=== PATIENT | male | born 1985 | race African-American/Black ===

== ENCOUNTER → 2019-09-23 13:06 | Outpatient (CLI) | payer MEDICAID ==
[2019-09-23 14:29] LABS: BASOPHILS 0.7 % (0-2); EOSINOPHILS 7.3 % (0-7); HEMATOCRIT 42.2 % (42.0-54.0); HEMOGLOBIN 14.3 g/dL (13.5-17.5); IMMATURE GRANULOCYTES 0.4 % (0-5); LYMPHOCYTES 33.1 % (15-50); MCH 28.8 pg (26.0-34.0); MCHC 33.9 g/dL (31.0-37.0); MCV 85.1 fL (80.0-100.0); MEAN PLATELET VOLUME 10.7 fL (7.4-10.4); MONOCYTES 7.3 % (2-11); NEUTROPHILS 51.2 % (40-80); PLATELET COUNT 173 10x3/uL (130-400); RBC 4.96 10x6/uL (4.20-6.10); WBC 5.6 10x3/uL (4.8-10.8)
== END | disposition home or self-care (01) ==
LOC: D.RT 13:00
PROVIDERS: ATTEND Internal Medicine Pulmonary Disease
DX: R06.09 Other forms of dyspnea (principal); J45.909 Unspecified asthma, uncomplicated

== ENCOUNTER → 2020-01-10 13:08 | Outpatient (CLI) | payer MEDICAID ==
[2019-11-08 22:15] VITALS: BMI 23.1
[~2020-01-10 13:08] MED LIST: PREDNISONE20 MG PO; TESSALON PERLE100 MG PO
== END | disposition home or self-care (01) ==
LOC: D.MRI 13:08
PROVIDERS: ATTEND Clinical Nurse Specialist Family Health
DX: M25.531 Pain in right wrist (principal)

== ENCOUNTER 2020-01-14 23:14 | Inpatient (IN) | payer MEDICAID ==
[~2020-01-14] VITALS: Ht 188 cm; Wt 90.1 kg
[2020-01-14 23:46] LABS: BASOPHILS 0.8 % (0-2); EOSINOPHILS 9.1 % (0-7); HEMATOCRIT 43.1 % (42.0-54.0); HEMOGLOBIN 14.5 g/dL (13.5-17.5); IMMATURE GRANULOCYTES 0.2 % (0-5); LYMPHOCYTES 34.2 % (15-50); MCHC 33.6 g/dL (31.0-37.0); MCV 86.2 fL (80.0-100.0); MEAN PLATELET VOLUME 10.5 fL (7.4-10.4); MONOCYTES 5.8 % (2-11); NEUTROPHILS 49.9 % (40-80); PLATELET COUNT 192 10x3/uL (130-400); RDW 12.7 % (11.5-14.5); WBC 9.9 10x3/uL (4.8-10.8)
[2020-01-14 23:48] VITALS: BP 181/121
[2020-01-14 23:55] LABS: ANION GAP 10.5 mmol/L (8-16); CALCIUM 8.6 mg/dL (8.5-10.1); CARBON DIOXIDE 28.2 mmol/L (21.0-32.0); CREATININE - SERUM 1.4 mg/dL (0.6-1.3); POTASSIUM - SERUM 3.7 mmol/L (3.5-5.1)
[2020-01-15] VITALS (26 sets, daily range): BP systolic 99–171; BP diastolic 61–101; Ht 188 cm; Wt 90.1 kg
[2020-01-15 00:03] LABS: ALBUMIN 4.1 g/dL (3.4-5.0); BILIRUBIN - TOTAL 0.35 mg/dL (0.2-1.3); MAGNESIUM - SERUM 2.9 mg/dL (1.8-2.4); PROTEIN - SERUM 7.3 g/dL (6.4-8.2)
--- NOTE | 2020-01-15 02:00 | NUR ---
PT ON UNIT CONNECTED TO ICU MONITORS - BIPAP @ 25% - HYPERTENSIVE AND TACHYCARDIC, ADMISSION ASSESSMENT, HISTORY, SRS, AND MED REC COMPLETED WILL CONTINUE TO CLOSELY MONITOR
[2020-01-15] MEDS ORDERED: SYMBICORT 16010.2 GM INH (02:26)
[2020-01-15] MEDS ORDERED: PROAIR HFA8.5 G1 INH (02:27)
[2020-01-15] MEDS ORDERED: PROVENTIL/2.5 MG/3 M UPD (02:30)
--- NOTE | 2020-01-15 05:15 | NUR ---
PT IV OUT AT THIS TIME, D/C WITH CATH INTACT. RESITED 20G LITTLE. IV FLUIDS RECONNECTED AND RUNNING. RR > 30 - PT USING ACCESSORY MUSCLES TO BREATHE. C/O CHEST PRESSURE AND HEADACHE AT THIS TIME. WILL CONTINUE TO MONITOR
--- NOTE | 2020-01-15 05:45 | NUR ---
CONTACTED DR RODNEY REGARDING INCREASED EFFORT AND AIR HUNGER, PT ANXIOUS, CO HEADACHE AND WORSENING CHEST PRESSURE. NEW ORDERS RECEIVED SEE FLOWSHEET
--- NOTE | 2020-01-15 07:21 | NUR ---
PT RESTING QUIETLY, VSS.
[2020-01-15 08:05] LABS: BASOPHILS 0.1 % (0-2); EOSINOPHILS 0 % (0-7); HEMATOCRIT 45.3 % (42.0-54.0); HEMOGLOBIN 14.9 g/dL (13.5-17.5); IMMATURE GRANULOCYTES 0.3 % (0-5); LYMPHOCYTES 5.3 % (15-50); MCHC 32.9 g/dL (31.0-37.0); MCV 88.1 fL (80.0-100.0); MEAN PLATELET VOLUME 11.5 fL (7.4-10.4); MONOCYTES 1.2 % (2-11); NEUTROPHILS 93.1 % (40-80); PLATELET COUNT 174 10x3/uL (130-400); RBC 5.14 10x6/uL (4.20-6.10); RDW 12.9 % (11.5-14.5); WBC 7.7 10x3/uL (4.8-10.8)
[2020-01-15 08:26] LABS: CREATININE - SERUM 1.2 mg/dL (0.6-1.3)
[2020-01-15 08:27] LABS: ANION GAP 22.2 mmol/L (8-16); CARBON DIOXIDE 18.3 mmol/L (21.0-32.0); POTASSIUM - SERUM 4.5 mmol/L (3.5-5.1)
[2020-01-15 11:03] LABS: UDS - AMPHET NEGATIVE QUAL (NEGATIVE); UDS - BARB NEGATIVE QUAL (NEGATIVE); UDS - BENZO NEGATIVE QUAL (NEGATIVE); UDS - COCAINE NEGATIVE QUAL (NEGATIVE); UDS - OPIATE NEGATIVE QUAL (NEGATIVE); UDS - PCP NEGATIVE QUAL (NEGATIVE); UDS - THC POSITIVE QUAL (NEGATIVE)
[2020-01-15 11:23] LABS: BILIRUBIN NEGATIVE (NEGATIVE); GLUCOSE NEGATIVE (NEGATIVE); KETONE NEGATIVE (NEGATIVE); NITRITE NEGATIVE (NEGATIVE); UROBILINOGEN NORMAL (NORMAL)
--- NOTE | 2020-01-15 11:47 | NUR ---
DR PHAM HERE ON ROUNDS. PT TAEN OFF BIPAP TO SPEAK TO DR PHAM. PT FRANNIE WELL.
--- NOTE | 2020-01-15 13:00 | NUR ---
DR RODNEY HERE ON ROUNDS. PT RESTING QUIETLY ON 2LNC. VSS.
--- NOTE | 2020-01-15 19:05 | NUR ---
PT BILAT WHEEZING NOTED ALL LOBES - SHIFT ASSESSMENT COMPLETED SEE FLOWSHEET
--- NOTE | 2020-01-15 21:15 | NUR ---
PT RECEIVED HS MEDICATIONS, RESTING COMFORTABLY WITH EYES CLOSED, EVEN AND EQUAL RESPIRATIONS NO ACCESSORY MUSCLE USE NOTED. PT ROUSED TO VOICE. FOLLOWS COMMANDS, TOLERATED PO MEDS WELL. CALL WILL IN REACH, TWO SIDE RAIL FOR SAFETY. BED IN LOWEST POSITION PATIENT DENIES NEEDS. VSS CPOC
--- NOTE | 2020-01-15 22:26 | NUR ---
REASSESSMENT COMPLETED SEE FLOWSHEET
[2020-01-16] VITALS (9 sets, daily range): BP systolic 122–137; BP diastolic 63–81
--- NOTE | 2020-01-16 01:00 | NUR ---
PATIENT RESTING COMFORTABLY WITH EYES CLOSED, EVEN EQUAL RESPIRATIONS NOTED. NO APPARANT SIGNS OF ACUTE CHANGES OR DISTRESS. VSS CPOC
--- NOTE | 2020-01-16 02:54 | NUR ---
REASSESSMENT COMPLETED SEE FLOWSHEET
[2020-01-16 03:22] LABS: BASOPHILS 0 % (0-2); EOSINOPHILS 0 % (0-7); HEMATOCRIT 42.9 % (42.0-54.0); HEMOGLOBIN 14.3 g/dL (13.5-17.5); IMMATURE GRANULOCYTES 0.2 % (0-5); LYMPHOCYTES 7.2 % (15-50); MCH 28.3 pg (26.0-34.0); MCHC 33.3 g/dL (31.0-37.0); MEAN PLATELET VOLUME 10.8 fL (7.4-10.4); MONOCYTES 6.9 % (2-11); NEUTROPHILS 85.7 % (40-80); RBC 5.06 10x6/uL (4.20-6.10); RDW 12.8 % (11.5-14.5)
[2020-01-16 03:31] LABS: MCV 84.8 fL (80.0-100.0); PLATELET COUNT 211 10x3/uL (130-400); WBC 10.6 10x3/uL (4.8-10.8)
[2020-01-16 03:34] LABS: ANION GAP 13.2 mmol/L (8-16); CALCIUM 8.3 mg/dL (8.5-10.1); CREATININE - SERUM 1.2 mg/dL (0.6-1.3); POTASSIUM - SERUM 4.2 mmol/L (3.5-5.1)
--- NOTE | 2020-01-16 07:15 | NUR ---
REPORT RECIEVED, SHIFT ASSESSMENT COMPLETE, PT IS ALERT AND ORIENTED, ON 2L NC WITH 97% O2 SAT. ALL PPP, VSS, CALL LIGHT IN REACH
--- NOTE | 2020-01-16 09:30 | NUR ---
DR. AYALA AND DR. SANTOS AT BEDSIDE, UPDATE GIVEN
--- NOTE | 2020-01-16 11:15 | NUR ---
PT RESTING AT THIS TIME, VSS, CALL LIGHT IN REACH
--- NOTE | 2020-01-16 13:00 | NUR ---
PT RESTING AT THIS TIME, NO NEEDS NOTED, VSS, CALL LIGHT IN REACH
--- NOTE | 2020-01-16 15:09 | NUR ---
REPORT GIVEN TO LISETH AT THIS TIME, PT TRANSFERRED TO [id number]
--- NOTE | 2020-01-16 16:38 | NUR ---
ASSUMED PT CARE AFTER TRANSFER FROM ICU. PT VSS. NO NEEDS AT THIS TIME.
--- NOTE | 2020-01-16 18:10 | MORECARE ---
CASE MANAGEMENT DISCHARGE SUMMARY PATIENT: GOLDEN WOLF UNIT: [id number] ADM DATE: 01/15/20 AGE: 34 : 84 SEX: M ROOM/BED: D.2213 AUTHOR: JE FREED PHYSICIAN: REFERRING PHYSICIAN: ANNA RODNEY MD DATE OF SERVICE: 01/16/20 Discharge Plan Patient Name: GOLDEN WOLF [facility] [facility] 1985 Planned Disposition: Home Anticipated Discharge Date: Discharge Date: Expected LOS: Initial Reviewer: [email or web address] Initial Review Date: 01/15/2020 Generated: 01/16/20 7:09 pm DCPIA - Discharge Planning Initial Assessment Updated by [id number]: Blanquita Bauer on 01/16/20 6:08 pm * Is the patient Alert and Oriented? Yes * How many steps to enter\exit or inside your home? * PCP [facility] [place] * Pharmacy [facility] [place] * Preadmission Environment Home with Family * ADLs Independent * Equipment Nebulizer * List name and contact numbers for known caregivers / representatives who currently or will assist patient after discharge: [facility]- [phone] * Verbal permission to speak to the caregivers and representatives has been obtained from the patient. Yes * Community resources currently utilized None * Additional services required to return to the preadmission environment? No * Can the patient safely return to the preadmission environment? Yes * Has this patient been hospitalized within the prior 30 days at any hospital? No Patient Name: GOLDEN WOLF Page 10504 at 1810 All edits/amendments must be made on the electronic document DICTATION DATE: 01/16/201808 SUPERVISOR POLE YARD: BRIAN 01/16/201808 RPT#: [id number] DC DATE: STATUS: ADM IN [facility] [address] [place] [address] END OF REPORT
--- NOTE | 2020-01-17 02:44 | NUR ---
patient resting in bed with no s/s of distress alert and orented x4 able to voice needs and wants to staff, call light and water in reach. no needs at this time. IV to left forearm with ns at 125 ml/hr. no s/s of distress. checked often for needs and safety.
--- NOTE | 2020-01-17 04:30 | NUR ---
SUPINE IN BED, SPONTANEOUS EYE OPENING UPON VERBAL STIMULATION. A&O X 4. AMBULATES AD JAYESH. CONNECTED TO IV AND FLUIDS RESTARTED. DENIES NEEDS AT THIS TIME, WILL CONTINUE TO MONITOR.
[2020-01-17 05:35] LABS: BASOPHILS 0 % (0-2); EOSINOPHILS 0 % (0-7); HEMATOCRIT 43.1 % (42.0-54.0); HEMOGLOBIN 14.3 g/dL (13.5-17.5); IMMATURE GRANULOCYTES 0.3 % (0-5); LYMPHOCYTES 5.9 % (15-50); MCH 28.5 pg (26.0-34.0); MCHC 33.2 g/dL (31.0-37.0); MCV 85.9 fL (80.0-100.0); MEAN PLATELET VOLUME 11.3 fL (7.4-10.4); MONOCYTES 5.1 % (2-11); NEUTROPHILS 88.7 % (40-80); PLATELET COUNT 235 10x3/uL (130-400); RBC 5.02 10x6/uL (4.20-6.10); RDW 13.4 % (11.5-14.5); WBC 12.8 10x3/uL (4.8-10.8)
[2020-01-17 05:54] LABS: CALC OSMOLALITY 277 mosm/kg (275-300); CALCIUM 8.5 mg/dL (8.5-10.1); CHLORIDE - SERUM 103 mmol/L (98-107); CREATININE - SERUM 1.1 mg/dL (0.6-1.3); GLUCOSE 102 mg/dL (74-106); PHOSPHOROUS 4.1 mg/dL (2.5-4.9); POTASSIUM - SERUM 4.3 mmol/L (3.5-5.1); SODIUM 137 mmol/L (136-145); eGFR NON AFRICAN AMERICAN 81 mL/min (90-120)
[2020-01-17 06:07] LABS: UREA NITROGEN 24 mg/dL (7-18)
--- NOTE | 2020-01-17 07:27 | NUR ---
ALERT AND ORIENTED. LUNGS DIMINISHED BILATERALLY. HEART SOUNDS S1 AND S2 HEARD IN ALL CRESPO. BOWEL SOUNDS ACTIVE X 4. SKIN INTACT WITHOUT REDNESS. IV TO LEFT AC PATENT WITHOUT REDNESS. DENIES NEEDS. BED LOW. CALL WILL AND PERSONAL ITEMS IN REACH. WILL CONTINUE TO MONITOR.
[2020-01-17 09:26] VITALS: BP 123/72
--- NOTE | 2020-01-17 12:21 | NUR ---
RESTING IN BED. DENIES NEEDS. WILL CONTINUE TO MONITOR.
--- NOTE | 2020-01-17 12:33 | NUR ---
PATIENT STATES WANTS TO DC. MELANIA STOUT PAGED.
--- NOTE | 2020-01-17 12:35 | NUR ---
MELANIA STOUT STATES ABOUT TO MAKE ROUNDS BUT WILL RECOMMEND DC TO DR TURNER AFTER ROUNDING IF PATIENT WARRANTS DC.
[2020-01-17 13:21] VITALS: BP 131/89
[2020-01-17] MEDS ORDERED: NORVASC5 MG PO (14:46)
[2020-01-17] MEDS ORDERED: SYMBICORT 16010.2 GM INH (14:47)
[2020-01-17] MEDS ORDERED: SINGULAIR10 MG PO (14:48)
[2020-01-17] MEDS ORDERED: PREDNISONE10 MG PO (14:49)
--- NOTE | 2020-01-17 14:50 | NUR ---
PATIENT REQUESTING TO USE PLAYSTATION IN ROOM IF FRIEND BRINGS TO HOSPITAL. NOTIFIED MAINTENANCE WHO STATES TO PUT IN WORK ORDER. WORK ORDER PLACED.
--- NOTE | 2020-01-17 15:56 | NUR ---
DISCHARGE EDUCATION PROVIDED BOTH WRITTEN AND VERBAL. VERBALIZED UNDERSTANDING. DENIES FURTHER QUESTIONS. IV REMOVED FROM LEFT AC WITH TIP INTACT. DENIES NEEDS. WAITING RIDE.
--- NOTE | 2020-01-17 16:46 | NUR ---
PATIENT DC HOME WITH ALL BELONGINGS.
--- NOTE | 2020-01-17 22:02 | MORECARE ---
CASE MANAGEMENT DISCHARGE SUMMARY PATIENT: GOLDEN WOLF UNIT: [id number] ADM DATE: 01/15/20 AGE: 34 : 83 SEX: M ROOM/BED: D.2213 AUTHOR: ABDIAZIZ,DOC PHYSICIAN: REFERRING PHYSICIAN: ANNA RODNEY MD DATE OF SERVICE: 01/17/20 Discharge Plan Patient Name: GOLDEN WOLF Facility: [facility]:[place] : 1985 Planned Disposition: Home Anticipated Discharge Date: Discharge Date: 01/17/2020 Expected LOS: Initial Reviewer: [email or web address] Initial Review Date: 01/15/2020 Generated: 01/17/20 11:02 pm Comments DCP- Discharge Planning Updated by [email or web address]: Blanquita Bauer on 01/16/20 5:[address] Patient Name: GOLDEN WOLF Admission Status: ER Accout number: [id number] Admission Date: 01-15-2020 : 1985 Admission Diagnosis: Attending: ANNA RODNEY Current LOS: 1 Anticipated DC Date: Planned Disposition: Home Primary Insurance: MEDICAID [place] Discharge Planning Comments: CM met with patient at bedside after explaining CM role and obtaining verbal consent. Patient lives at home with family where he is independent with his care and plans to return there upon discharge. Patient feels this would be a safe discharge. CM discussed availability / needs of home health and medical equipment. Patient denies any discharge needs at this time. Patient states he will have his family drive him home upon discharge. CM will continue to follow and assist as needed with discharge planning / needs. Line Staker: Blanquita Bauer DCPIA - Discharge Planning Initial Assessment Updated by [email or web address]: Blanquita Bauer on 01/16/20 6:08 pm * Is the patient Alert and Oriented? Yes * How many steps to enter\exit or inside your home? * PCP [facility] [place] * Pharmacy [facility] [place] * Preadmission Environment Home with Family * ADLs Independent * Equipment Nebulizer * List name and contact numbers for known caregivers / representatives who currently or will assist patient after discharge: [facility] - [facility]- [phone] * Verbal permission to speak to the caregivers and representatives has been obtained from the patient. Yes * Community resources currently utilized None * Additional services required to return to the preadmission environment? No * Can the patient safely return to the preadmission environment? Yes * Has this patient been hospitalized within the prior 30 days at any hospital? No Last DP export: 01/16/20 5:10 p Patient Name: GOLDEN WOLF Page 15979 at 2202 All edits/amendments must be made on the electronic document DICTATION DATE: 01/17/202201 INSPECTOR HAIRSPRING TRUING: BRIAN 01/17/202201 RPT#: [id number] DC DATE:01/17/20 STATUS: DIS IN [facility] [address] [place] [address] END OF REPORT
== END 2020-01-17 16:46 | disposition home or self-care (01) | DRG 189 ==
LOC: D.ER 23:14 → D.ICU 01-15 00:14 → D.MS 01-15 00:14 → D.M2 01-15 00:14 → D.ICU 01-15 01:43 → D.MS 01-16 15:10
PROVIDERS: Emergency Medicine; ADMIT Internal Medicine Nephrology; ATTEND Internal Medicine Nephrology
DX: J96.02 Acute respiratory failure with hypercapnia (principal); N17.9 Acute kidney failure, unspecified; E87.1 Hypo-osmolality and hyponatremia; J44.1 Chronic obstructive pulmonary disease with (acute) exacerbation; J45.909 Unspecified asthma, uncomplicated; I10 Essential (primary) hypertension; F12.90 Cannabis use, unspecified, uncomplicated; E83.41 Hypermagnesemia

== ENCOUNTER 2020-02-17 02:18 | Observation (INO) | payer MEDICAID ==
[~2020-02-17] VITALS: Ht 188 cm; Wt 86.2 kg
[2020-02-17] VITALS (7 sets, daily range): BP systolic 117–180; BP diastolic 75–97; Ht 188 cm; Wt 86.2 kg
[~2020-02-17 02:18] MED LIST changes: +NORVASC5 MG PO; +PREDNISONE10 MG PO; +PROAIR HFA8.5 G1 INH; +PROVENTIL/2.5 MG/3 M UPD; +SINGULAIR10 MG PO; +SYMBICORT 16010.2 GM INH
[2020-02-17 02:35] LABS: BASOPHILS 0.4 % (0-2); EOSINOPHILS 5.7 % (0-7); HEMATOCRIT 42.9 % (42.0-54.0); HEMOGLOBIN 14.4 g/dL (13.5-17.5); IMMATURE GRANULOCYTES 0.9 % (0-5); LYMPHOCYTES 34.4 % (15-50); MCH 28.6 pg (26.0-34.0); MCHC 33.6 g/dL (31.0-37.0); MCV 85.1 fL (80.0-100.0); MEAN PLATELET VOLUME 10.5 fL (7.4-10.4); MONOCYTES 6.6 % (2-11); PLATELET COUNT 173 10x3/uL (130-400); RBC 5.04 10x6/uL (4.20-6.10); RDW 13.5 % (11.5-14.5); WBC 10.2 10x3/uL (4.8-10.8)
[2020-02-17 02:43] LABS: CALC OSMOLALITY 268 mosm/kg (275-300); CALCIUM 8.4 mg/dL (8.5-10.1); CARBON DIOXIDE 27.1 mmol/L (21.0-32.0); CHLORIDE - SERUM 101 mmol/L (98-107); CREATININE - SERUM 1.4 mg/dL (0.6-1.3); GLUCOSE 127 mg/dL (74-106); POTASSIUM - SERUM 3.9 mmol/L (3.5-5.1); SODIUM 134 mmol/L (136-145); UREA NITROGEN 10 mg/dL (7-18); eGFR NON AFRICAN AMERICAN 61 mL/min (90-120)
[2020-02-17 02:57] LABS: ALKALINE PHOSPHATASE 80 U/L (30-120); ALT (SGPT) 97 U/L (10-68); BILIRUBIN - TOTAL 0.18 mg/dL (0.2-1.3); CKMB 2.7 U/L (0.0-3.6); CREATINE KINASE 176 UL (21-232); PROTEIN - SERUM 6.8 g/dL (6.4-8.2)
[2020-02-17 03:14] LABS: ALBUMIN 3.7 g/dL (3.4-5.0)
[2020-02-17 03:22] LABS: TROPONIN-I < 0.017 ng/mL (0.000-0.060)
--- NOTE | 2020-02-17 04:28 | NUR ---
ANSWERED PT'S CALL LIGHT, PT GIVEN URINAL, DENIES ANY FURTHER NEEDS AT THIS TIME. CALL LIGHT WITHIN REACH.
--- NOTE | 2020-02-17 06:02 | NUR ---
SITTING UP IN BED SHORT OF BREATH WHEN SPEAKING.STATES 'IM FEELING OK. NOT 100 PERCENT YET" LUNG SOUNDS DIMINISHED LOWER LOBES BILATERAL' SATS 100 PERCENT ON O2 AT 2 L/M PER N/C
--- NOTE | 2020-02-17 07:10 | NUR ---
PT ADMITTED TO 2111 VIA WC FROM ED. AWAKE ALERT, ON 2 L PER NC REPORTS HIS DYSPNEA HAS IMPROVED AFTER REACING UD AND SOLUMEDROL IN EMS AND ED. PT REPORTS A CHRONIC H/O ASTHMA AND COPD WITH SEVERAL EXACERBATIONS OVER THE LAST FEW WEEKS. REPORTS MOST RECENT ASTHMA EXAC WAS DUE TO A FRIENDS PERFUME. HE DENIES ANY NEEDS AT THIS TIME. WILL CONTINUE TO MONITOR.
--- NOTE | 2020-02-17 09:12 | NUR ---
TELEMETRY PLACED ON PT RYTHM NOW NSR
[2020-02-17] MEDS ORDERED: IPRAT-ALBUT 0.5-3 ML UPD (13:34)
[2020-02-17 14:05] LABS: UDS - AMPHET NEGATIVE QUAL (NEGATIVE); UDS - BARB NEGATIVE QUAL (NEGATIVE); UDS - BENZO NEGATIVE QUAL (NEGATIVE); UDS - COCAINE NEGATIVE QUAL (NEGATIVE); UDS - OPIATE NEGATIVE QUAL (NEGATIVE); UDS - PCP NEGATIVE QUAL (NEGATIVE); UDS - THC POSITIVE QUAL (NEGATIVE)
[2020-02-17 14:06] LABS: BILIRUBIN NEGATIVE (NEGATIVE); GLUCOSE 100 mg/dL (NEGATIVE); KETONE SMALL mg/dL (NEGATIVE); NITRITE NEGATIVE (NEGATIVE); SPECIFIC GRAVITY 1.015 (1.005-1.020); UROBILINOGEN NORMAL (NORMAL)
--- NOTE | 2020-02-17 14:21 | MORECARE ---
CASE MANAGEMENT DISCHARGE SUMMARY PATIENT: GOLDEN WOLF UNIT: [id number] ADM DATE: 02/17/20 AGE: 34 : 83 SEX: M ROOM/BED: D.2112 AUTHOR: JE FREED PHYSICIAN: REFERRING PHYSICIAN: ZULY NGUYEN MD DATE OF SERVICE: 02/17/20 Discharge Plan Patient Name: GOLDEN WOLF Facility: [facility]:[place] : 1985 Planned Disposition: Home or Self Care Anticipated Discharge Date: 02/17/20 Discharge Date: Expected LOS: 1 Initial Reviewer: [email or web address] Initial Review Date: 02/17/2020 Generated: 02/17/20 3:21 pm External Providers External Provider: Mary Next Contact Date: Service Request Date: Service Type: Resolution: Reviewer: Comments: Patient Name: GOLDEN WOLF Page 16978 at 1421 All edits/amendments must be made on the electronic document DICTATION DATE: 02/17/20 1421 JUMPBASTING COLLAR BASTER: BRIAN 02/17/20 1421 RPT#: [id number] [place] DATE: STATUS: ADM IN [facility] [address] [place] [address] END OF REPORT
--- NOTE | 2020-02-17 14:30 | MORECARE ---
CASE MANAGEMENT DISCHARGE SUMMARY PATIENT: GOLDEN WOLF UNIT: [id number] ADM DATE: 02/17/20 AGE: 34 : 83 SEX: M ROOM/BED: D.2112 AUTHOR: JE FREED PHYSICIAN: REFERRING PHYSICIAN: ZULY NGUYEN MD DATE OF SERVICE: 02/17/20 Discharge Plan Patient Name: GOLDEN WOLF Facility: [facility]:[place] : 1985 Planned Disposition: Home or Self Care Anticipated Discharge Date: 02/17/20 Discharge Date: Expected LOS: 1 Initial Reviewer: [email or web address] Initial Review Date: 02/17/2020 Generated: 02/17/20 3:29 pm Comments DCP- Discharge Planning Updated by [email or web address]: Deloris Briseno on 02/17/20 1:[address] Patient Name: GOLDEN WOLF Admission Status: ER Accout number: [id number] Admission Date: 02-17-2020 : 1985 Admission Diagnosis: Attending: ROSY NGUYEN Current LOS: 1 Anticipated DC Date: 02-17-2020 Planned Disposition: Home or Self Care Primary Insurance: MEDICAID [place] Discharge Planning Comments: CM received discharge order. I asked him if he had a nebulizer, he states he does but it is very old and would like a new one if insurance will purchase it. ISAIAS for [employer] signed. I spoke with Aleksander and a face sheet faxed to check insurance. His physical address is [address] [place] [address] in [place]. Cosmetics Presser: Deloris Briseno Coverage Notice Reviewer: [id number] - Deloris Briseno Notice Issued Date-Time: 02/17/2020 14:23 Notice Type: Patient Choice Letter Notice Delivered To: Patient Relationship to Patient: Self Manager Land Name: Delivery Method: HAND - Hand Delivered Angela Days: Prior Verbal Notification: Recipient Understood Notice: Yes Recipient Signature: Yes Med Rec Note Co-signed by Attending: Coverage Notice Comment: ISAIAS for [employer] signed Last DP export: 02/17/20 1:21 p Patient Name: GOLDEN WOLF Page 68926 at 1430 All edits/amendments must be made on the electronic document DICTATION DATE: 02/17/201428 SERVICE LINE LAYER: BRIAN 02/17/201428 RPT#: [id number] DC DATE: STATUS: ADM IN [facility] [address] [place] [address] END OF REPORT
--- NOTE | 2020-02-17 15:39 | MORECARE ---
CASE MANAGEMENT DISCHARGE SUMMARY PATIENT: GOLDEN WOLF UNIT: [id number] ADM DATE: 02/17/20 AGE: 34 : [birth year] SEX: M ROOM/BED: D.2112 AUTHOR: JE FREED PHYSICIAN: REFERRING PHYSICIAN: ZULY NGUYEN MD DATE OF SERVICE: 02/17/20 Discharge Plan Patient Name: GOLDEN WOLF Facility: [facility]:[place] : 1985 Planned Disposition: Home or Self Care Anticipated Discharge Date: 02/17/20 Discharge Date: Expected LOS: 1 Initial Reviewer: [email or web address] Initial Review Date: 02/17/2020 Generated: 02/17/20 4:38 pm Comments DCP- Discharge Planning Updated by [email or web address]: Deloris Briseno on 02/17/20 2:[address] He is eligible for a new nebulizer. He will pick it up at [facility]. Home today. DCP- Discharge Planning Updated by [email or web address]: Deloris Briseno on 02/17/20 1:[address] Patient Name: GOLDEN WOLF Admission Status: ER Accout number: [id number] Admission Date: 02-17-2020 : 1985 Admission Diagnosis: Attending: ROSY NGUYEN Current LOS: 1 Anticipated DC Date: 02-17-2020 Planned Disposition: Home or Self Care Primary Insurance: MEDICAID [place] Discharge Planning Comments: CM received discharge order. I asked him if he had a nebulizer, he states he does but it is very old and would like a new one if insurance will purchase it. ISAIAS for [employer] signed. I spoke with Aleksander and a face sheet faxed to check insurance. His physical address is [address] [place] [address]. Vat House Laborer: Deloris Briseno Coverage Notice Reviewer: [id number] - Deloris Briseno Notice Issued Date-Time: 02/17/2020 14:23 Notice Type: Patient Choice Letter Notice Delivered To: Patient Relationship to Patient: Self Sealing And Canceling Machine Operator Name: Delivery Method: HAND - Hand Delivered Angela Days: Prior Verbal Notification: Recipient Understood Notice: Yes Recipient Signature: Yes Med Rec Note Co-signed by Attending: Coverage Notice Comment: ISAIAS for [employer] signed Last DP export: 02/17/20 1:30 p Patient Name: GOLDEN WOLF Page 66466 at 1539 All edits/amendments must be made on the electronic document DICTATION DATE: 02/17/201537 ARMATURE WINDER REPAIRER: BRIAN 02/17/201537 RPT#: [id number] DC DATE: STATUS: ADM IN [facility] [address] [place] [address] END OF REPORT
--- NOTE | 2020-02-17 15:45 | NUR ---
REVIEWED DISCHARGE INSTRUCTIONS WITH PT STATES UNDERSTANDING COPY GIVEN
--- NOTE | 2020-02-17 16:18 | NUR ---
PT DISCHARGED HOME LEFT UNIT VIA W/C WITH ALL PERSONAL BELONGINGS IN STABLE CONDITION.
--- NOTE | 2020-02-20 16:32 | MORECARE ---
CASE MANAGEMENT DISCHARGE SUMMARY PATIENT: GOLDEN WOLF UNIT: [id number] ADM DATE: 02/17/20 AGE: 34 : 83 SEX: M ROOM/BED: D.2112 AUTHOR: JE FREED PHYSICIAN: REFERRING PHYSICIAN: ZULY NGUYEN MD DATE OF SERVICE: 02/20/20 Discharge Plan Patient Name: GOLDEN WOLF Facility: [facility]:[place] : 1985 Planned Disposition: Home or Self Care Anticipated Discharge Date: 02/17/20 Discharge Date: 02/17/2020 Expected LOS: 1 Initial Reviewer: [email or web address] Initial Review Date: 02/17/2020 Generated: 02/20/20 5:32 pm Comments DCP- Discharge Planning Updated by [email or web address]: Deloris Briseno on 02/17/20 2:[address] He is eligible for a new nebulizer. He will pick it up at [facility] [place] [facility]. Home today. DCP- Discharge Planning Updated by [id number]: Deloris Briseno on 02/17/20 1:[address] Patient Name: GOLDEN WOLF Admission Status: ER Accout number: [id number] Admission Date: 02-17-2020 : 1985 Admission Diagnosis: Attending: ROSY NGUYEN Current LOS: 1 Anticipated DC Date: 02-17-2020 Planned Disposition: Home or Self Care Primary Insurance: MEDICAID [place] Discharge Planning Comments: CM received discharge order. I asked him if he had a nebulizer, he states he does but it is very old and would like a new one if insurance will purchase it. ISAIAS for [employer] signed. I spoke with Aleksander and a face sheet faxed to check insurance. His physical address is [address] [place] [address] in [place]. Shipping/Receiving Clerk: Deloris Briseno Coverage Notice Reviewer: [id number] - Deloris Briseno Notice Issued Date-Time: 02/17/2020 14:23 Notice Type: Patient Choice Letter Notice Delivered To: Patient Relationship to Patient: Self Air Brake Rigger Name: Delivery Method: HAND - Hand Delivered Angela Days: Prior Verbal Notification: Recipient Understood Notice: Yes Recipient Signature: Yes Med Rec Note Co-signed by Attending: Coverage Notice Comment: ISAIAS for [employer] signed Last DP export: 02/17/20 2:39 p Patient Name: GOLDEN WOLF Page 77864 at 1632 All edits/amendments must be made on the electronic document DICTATION DATE: 02/20/20 1632 FLIGHT CREW TIME CLERK: BRIAN 02/20/20 1632 RPT#: [id number] DC DATE:02/17/20 STATUS: DIS IN [facility] [address] [place] [address] END OF REPORT
== END 2020-02-17 16:22 | disposition home or self-care (01) ==
LOC: D.ER 02:18 → D.M2 06:29 → OBSVTIME 06:29 → D.M2 06:29
PROVIDERS: Family Medicine; ADMIT Emergency Medicine; ATTEND Emergency Medicine
DX: J45.901 Unspecified asthma with (acute) exacerbation (principal); N17.9 Acute kidney failure, unspecified; E87.1 Hypo-osmolality and hyponatremia; J44.9 Chronic obstructive pulmonary disease, unspecified; I10 Essential (primary) hypertension; F12.10 Cannabis abuse, uncomplicated

== ENCOUNTER 2020-04-22 07:08 | Inpatient (IN) | payer MEDICAID ==
[~2020-04-22] VITALS: Ht 188 cm; Wt 86.2 kg
[~2020-04-22 07:08] MED LIST changes: +IPRAT-ALBUT 0.5-3 ML UPD
[2020-04-22 07:45] LABS: BASOPHILS 0.7 % (0-2); EOSINOPHILS 10.8 % (0-7); HEMATOCRIT 43.3 % (42.0-54.0); HEMOGLOBIN 14.8 g/dL (13.5-17.5); IMMATURE GRANULOCYTES 0.3 % (0-5); LYMPHOCYTES 21.1 % (15-50); MCH 29.1 pg (26.0-34.0); MCHC 34.2 g/dL (31.0-37.0); MCV 85.2 fL (80.0-100.0); MEAN PLATELET VOLUME 10.3 fL (7.4-10.4); MONOCYTES 9.2 % (2-11); NEUTROPHILS 57.9 % (40-80); PLATELET COUNT 226 10x3/uL (130-400); RBC 5.08 10x6/uL (4.20-6.10); RDW 13.4 % (11.5-14.5)
[2020-04-22 07:54] LABS: CALC OSMOLALITY 281 mosm/kg (275-300); CALCIUM 9.2 mg/dL (8.5-10.1); CARBON DIOXIDE 29.8 mmol/L (21.0-32.0); CHLORIDE - SERUM 105 mmol/L (98-107); CREATININE - SERUM 1.5 mg/dL (0.6-1.3); GLUCOSE 91 mg/dL (74-106); POTASSIUM - SERUM 4.2 mmol/L (3.5-5.1); SODIUM 141 mmol/L (136-145); UREA NITROGEN 14 mg/dL (7-18); eGFR NON AFRICAN AMERICAN 56 mL/min (90-120)
[2020-04-22 08:03] LABS: ALBUMIN 3.9 g/dL (3.4-5.0); ALKALINE PHOSPHATASE 73 U/L (30-120); ALT (SGPT) 12 U/L (10-68); AMYLASE - SERUM 69 U/L (25-115); BILIRUBIN - TOTAL 0.47 mg/dL (0.2-1.3); LIPASE 69 U/L (73-393); PROTEIN - SERUM 7.5 g/dL (6.4-8.2); TROPONIN-I < 0.017 ng/mL (0.000-0.060)
--- NOTE | 2020-04-22 11:32 | NUR ---
PT IN ROOM. WENT TO ER TO GIVE HIS KEYS TO A FRIEND AND GET CLOTHES A FRIEND HAD BROUGHT HIM.
[2020-04-22 11:53] VITALS: BP 135/77; BMI 24.4
--- NOTE | 2020-04-22 15:02 | NUR ---
PT WANTS TO HAVE A SHOWER BEFORE GETTING THE CULTURE. WILL TAPE UP OVER IV.
[2020-04-22 17:23] VITALS: BP 111/61
[2020-04-22 18:23] VITALS: BP 111/61
--- NOTE | 2020-04-22 19:02 | NUR ---
PT DENIES ANY NEEDS. FRIEND HUONG IN THE ROOM. CL IN REACH. [facility]
[2020-04-22 20:00] VITALS: BP 110/60
--- NOTE | 2020-04-22 21:56 | NUR ---
DR. LAL NOTIFIED AND REVIEWED PT'S BEHAVIOR AND ASSESSMENT RESULTS. PT IS A LOW RISK PER DR. LAL. DR. LAL STATED TO GIVE RESOURCES TO PT AT TIME OF DISCHARGE. NO FURTHER ORDERS AT THIS TIME. RESOURCES REVIEWED WITH PT AND HE VERBALIZED UNDERSTANDING.
[2020-04-23] VITALS: BP 98/59
[2020-04-23 06:51] LABS: BASOPHILS 0.6 % (0-2); EOSINOPHILS 11.2 % (0-7); HEMATOCRIT 38.4 % (42.0-54.0); HEMOGLOBIN 12.7 g/dL (13.5-17.5); IMMATURE GRANULOCYTES 0.1 % (0-5); LYMPHOCYTES 17.2 % (15-50); MCH 28.3 pg (26.0-34.0); MCHC 33.1 g/dL (31.0-37.0); MCV 85.7 fL (80.0-100.0); MEAN PLATELET VOLUME 10.6 fL (7.4-10.4); MONOCYTES 6.6 % (2-11); NEUTROPHILS 64.3 % (40-80); PLATELET COUNT 204 10x3/uL (130-400); RBC 4.48 10x6/uL (4.20-6.10); RDW 13.5 % (11.5-14.5); WBC 7.2 10x3/uL (4.8-10.8)
--- NOTE | 2020-04-23 07:45 | NUR ---
PT LAYING ON LEFT SIDE. FRIEND HUONG IN ROOM WITH HIM. PLAYSTATION NOTED ON TABLE WITH GAMES. CL IN REACH. WCTM
[2020-04-23 08:00] VITALS: BP 124/71
[2020-04-23 08:43] LABS: ALBUMIN 3.1 g/dL (3.4-5.0); ANION GAP 9.6 mmol/L (8-16); BILIRUBIN - TOTAL 0.49 mg/dL (0.2-1.3); CALCIUM 7.7 mg/dL (8.5-10.1); CARBON DIOXIDE 26.9 mmol/L (21.0-32.0); CREATININE - SERUM 1.5 mg/dL (0.6-1.3); POTASSIUM - SERUM 3.5 mmol/L (3.5-5.1); PROTEIN - SERUM 5.6 g/dL (6.4-8.2)
[2020-04-23 12:00] VITALS: BP 117/68
[2020-04-23 13:26] LABS: BILIRUBIN NEGATIVE (NEGATIVE); GLUCOSE NEGATIVE (NEGATIVE); KETONE NEGATIVE (NEGATIVE); NITRITE NEGATIVE (NEGATIVE); UROBILINOGEN NORMAL (NORMAL)
[2020-04-23 14:26] VITALS: Ht 188 cm; Wt 86.2 kg
[2020-04-23 16:00] VITALS: BP 128/78
[2020-04-23 20:00] VITALS: BP 138/75
[2020-04-24] VITALS: BP 130/76
[2020-04-24 04:00] VITALS: BP 139/74
[2020-04-24 05:40] LABS: BASOPHILS 0.6 % (0-2); EOSINOPHILS 13.6 % (0-7); HEMATOCRIT 40.8 % (42.0-54.0); HEMOGLOBIN 13.4 g/dL (13.5-17.5); IMMATURE GRANULOCYTES 0.2 % (0-5); LYMPHOCYTES 28.6 % (15-50); MCH 28.3 pg (26.0-34.0); MCHC 32.8 g/dL (31.0-37.0); MCV 86.3 fL (80.0-100.0); MEAN PLATELET VOLUME 11.1 fL (7.4-10.4); MONOCYTES 6.3 % (2-11); NEUTROPHILS 50.7 % (40-80); PLATELET COUNT 223 10x3/uL (130-400); RBC 4.73 10x6/uL (4.20-6.10); RDW 13.5 % (11.5-14.5); WBC 6.2 10x3/uL (4.8-10.8)
[2020-04-24 06:11] LABS: ALBUMIN 3.4 g/dL (3.4-5.0); ANION GAP 12.5 mmol/L (8-16); BILIRUBIN - TOTAL 0.53 mg/dL (0.2-1.3); CALCIUM 8.6 mg/dL (8.5-10.1); CARBON DIOXIDE 27.5 mmol/L (21.0-32.0); CREATININE - SERUM 1.4 mg/dL (0.6-1.3); PROTEIN - SERUM 6.3 g/dL (6.4-8.2)
--- NOTE | 2020-04-24 06:55 | NUR ---
RESTING IN BED WITH EYES CLOSED. RESPIRATIONS EVEN AND UNLABORED. NO S/S OF ACUTE DISTRESS NOTED. IV TO LEFT AC, NS INFUSING @ 125ML/HR. SITE PATENT WITHOUT REDNESS OR SWELLING. CALL LIGHT IN REACH. WILL CONTINUE TO MONITOR.
[2020-04-24 08:00] VITALS: BP 147/72
[2020-04-24 12:00] VITALS: BP 135/87
[2020-04-24] MEDS ORDERED: FLORAJEN3 CAPS460 MG PO (12:56)
[2020-04-24] MEDS ORDERED: MIRALAX17 GM PO (12:57)
[2020-04-24] MEDS ORDERED: LEVOFLOXACIN500 MG PO (12:58)
[2020-04-24] MEDS ORDERED: HYDROCODON-ACE1 EAC2 PO (12:58)
--- NOTE | 2020-04-24 14:18 | NUR ---
DISCHARGED PATIENT HOME WITH FAMILY. DISCONTINUED IV, CATHETER TIP INTACT. WENT OVER DISCHARGE INSTRUCTIONS WITH PATIENT, VERBALIZED UNDERSTANDING. DENIES ANYTHING FURTHER.
== END 2020-04-24 14:24 | disposition home or self-care (01) | DRG 394 ==
LOC: D.ER 07:08 → OBSVTIME 09:42 → D.MS 09:42
PROVIDERS: Family Medicine; ADMIT Emergency Medicine; ATTEND Emergency Medicine
DX: K61.1 Rectal abscess (principal); N17.9 Acute kidney failure, unspecified; E86.0 Dehydration; I10 Essential (primary) hypertension; J44.9 Chronic obstructive pulmonary disease, unspecified; J45.909 Unspecified asthma, uncomplicated; Z72.89 Other problems related to lifestyle; F12.90 Cannabis use, unspecified, uncomplicated; K62.89 Other specified diseases of anus and rectum

== ENCOUNTER 2020-05-25 09:19 | Day surgery (SDC) | payer MEDICAID ==
[~2020-05-25] VITALS: Ht 188 cm; Wt 83.9 kg
--- NOTE | ~2020-05-25 | OP ---
PATIENT NAME: GOLDEN WOLF MEDICAL RECORD: [id number] :[birth year] LOCATION:D.OPS ADMISSION DATE: SURGEON: RICARDO WEBER MD DATE OF OPERATION: 05/25/2020 PREOPERATIVE DIAGNOSIS: Perirectal abscess. POSTOPERATIVE DIAGNOSIS: Perirectal abscess with anal fistula. PROCEDURE: Anal exam under anesthesia with fistulotomy. SURGEON: Ricardo Weber MD REPORT OF PROCEDURE: The patient was placed in lithotomy position and the perianal region was prepped and draped in sterile fashion. The patient had a lot of firm indurated tissue with some purulence present that come from the most posterior aspect at 6:00 as we inserted a Hill-Perez anoscope and I could see a small opening that was present. We went ahead and probed this opening and it went up through the underlying tissues and up into the patient's distal rectum/anus. This appeared to just catch a little bit of the patient's internal sphincter. I went ahead and just open up this tissue down through the entire fistula using electrocautery. After we opened this up, we can see a small pocket that was present with some purulent material. This did not appear to track anywhere else. We irrigated out the wound with peroxide and saline solution and any bleeding that was found was treated with electrocautery. We then inspected the remainder of the anus and saw no evidence of any infectious processes. The patient did have some hemorrhoids that were present which did not appear to be bleeding. COMPLICATIONS: None. CONDITION: Stable. ANESTHESIA: General endotracheal. BLOOD LOSS: 30 mL. TRANSINT:[id number] Voice Confirmation ID: [id number] DOCUMENT ID: [id number] RICARDO WEBER MD CC: [facility] [id number] DICTATION DATE: 05/25/20 1333 PILLOWCASE MAKER: 05/25/20 2142 [facility] 05/25/20 [place] [address] [place] [address]
[~2020-05-25 09:19] MED LIST changes: +FLORAJEN3 CAPS460 MG PO; +HYDROCODON-ACE1 EAC2 PO; +LEVOFLOXACIN500 MG PO; +MIRALAX17 GM PO
[2020-05-25 09:44] LABS: HEMOGLOBIN 14.2 g/dL (13.5-17.5); MCH 28.8 pg (26.0-34.0); MCHC 33.8 g/dL (31.0-37.0); MCV 85.2 fL (80.0-100.0); RBC 4.93 10x6/uL (4.20-6.10); RDW 12.7 % (11.5-14.5); WBC 4.9 10x3/uL (4.8-10.8)
[2020-05-25] MEDS ORDERED: PERCOCET 7.5/321 TAB PO (10:48)
[2020-05-25 10:49] VITALS: BP 115/78; Ht 188 cm; Wt 83.9 kg
[2020-05-25] MEDS ORDERED: BACTRIM DS TAB1 EAC1 PO (13:34)
--- NOTE | 2020-05-25 16:47 | NUR ---
1515 DECLINES PAIN MED. IV D/C'D WTH CANNULA INTACT, PRESSURE HELD AND DRSG PLACED. DISCHARGE INSTRUCTIONS GIVEN. PT VERBALIZED AN UNDERSTANDING. ANAL DRSG CDI.
== END 2020-05-25 15:45 | disposition home or self-care (01) ==
LOC: D.OPS 09:19
PROVIDERS: Anesthesiology; ATTEND Surgery
DX: K61.1 Rectal abscess (principal); K62.89 Other specified diseases of anus and rectum; J45.909 Unspecified asthma, uncomplicated; J44.9 Chronic obstructive pulmonary disease, unspecified; R06.00 Dyspnea, unspecified

== ENCOUNTER 2021-02-18 18:39 | Emergency (ER) | payer MEDICAID ==
[~2021-02-18] VITALS: Ht 188 cm; Wt 86.4 kg
[~2021-02-18 18:39] MED LIST changes: +ALBUTEROL SULF8.5 GM INH; +BACTRIM DS TAB1 EAC1 PO; +PERCOCET 7.5/321 TAB PO; +PREDNISONE50 MG PO
[2021-02-18 18:47] VITALS: Ht 188 cm; Wt 86.4 kg
[2021-02-18] MEDS ORDERED: ALBUTEROL SULF8.5 GM INH (20:01)
[2021-02-18] MEDS ORDERED: IPRAT-ALBUT 0.5-3 ML UPD (20:01)
[2021-02-18] MEDS ORDERED: STERAPRED DS 1210 MG PO (20:01)
[2021-02-18] MEDS ORDERED: SYMBICORT 16010.2 GM INH (20:37)
[2021-02-18 21:42] VITALS: BP 130/69
== END 2021-02-18 21:40 | disposition home or self-care (01) ==
LOC: D.ER 18:39
DX: E88.01 Alpha-1-antitrypsin deficiency (principal); J44.9 Chronic obstructive pulmonary disease, unspecified